=== PATIENT | male | born 1955 | race Hispanic/Latino ===

== ENCOUNTER → 2019-06-04 | Outpatient (CLI) | payer OTHER ==
--- NOTE | 2019-06-04 15:21 | Diagnostic Imaging Report ---
Renal ultrasound, 06/04/2019. History: Renal colic. Discussion: Transverse and longitudinal images of the kidneys were obtained demonstrating normal renal sizes and echogenicities. There is no evidence of hydronephrosis, mass, or renal calculus. The right kidney measures 9.7 cm and the left kidney measures 10.8 cm in length. Renal cortex measures 1.6 and 1.7 cm respectively. The urinary bladder is unremarkable. Bilateral ureteral jets are identified. Bladder volume measures 156 mL. Prostate is within normal limits. There is no evidence of free fluid. IMPRESSION: Normal renal ultrasound. No evidence of nephrolithiasis or hydronephrosis. Signed by: Ha Le on 06/04/2019 3:18 PM
--- NOTE | 2019-06-04 15:22 | Diagnostic Imaging Report ---
Abdomen, 1 view. History: Renal colic. Findings: Air is scattered throughout nondilated small and large bowel. There are no masses or abnormal calcifications. The osseous structures are intact. IMPRESSION: Non-specific bowel gas pattern. No visible calculi. Signed by: Ha Le on 06/04/2019 3:19 PM
== END ==
LOC: US 13:54
PROVIDERS: ATTEND Urology
DX: N23 Unspecified renal colic (principal)
CPT/HCPCS: 74018; 76770